=== PATIENT | female | born 1940 | race Asian ===

== ENCOUNTER 2021-12-12 18:43 | Emergency (ER) | payer MEDICAID ==
[~2021-12-12] VITALS: Ht 147.3 cm; Wt 51.4 kg
[2021-12-12] MEDS ORDERED: TRAN650T PO (18:59)
[2021-12-12] MEDS ORDERED: NIFE30TA50 PO (18:59)
[2021-12-12] MEDS ORDERED: LOSA100T45 PO (18:59)
[2021-12-12] MEDS ORDERED: NOXI1TAB PO (18:59)
[2021-12-12] MEDS ORDERED: CIPR-250 PO (18:59)
[2021-12-12] MEDS ORDERED: LEVO88TA3 PO (18:59)
[2021-12-12] MEDS ORDERED: GLYB5TAB6 PO (18:59)
[2021-12-12 19:57] VITALS: BP 197/79
[2021-12-12 19:57] LABS: BASO # 0.1 10^3/uL (0.0-0.2); BASO % 0.7 % (0.0-1.0); EOS # 0.2 10^3/uL (0.0-0.5); EOS % 2.7 % (0.0-3.0); HEMATOCRIT 31.2 % (36.0-47.0); HEMOGLOBIN 11.3 g/dl (12.0-15.5); LYMPH # 1.2 10^3/uL (1.5-5.0); MEAN CORPUSCULAR HEMOGLOBIN 32.9 pg (27.0-33.0); MEAN CORPUSCULAR HGB CONC 36.2 g/dl (32.0-36.5); MONO # 0.6 10^3/uL (0.0-0.8); MONO % 7.7 % (2.0-8.0); NEUTROPHILS # 5.3 10^3/uL (1.5-8.5); NEUTROPHILS % 72.5 % (36.0-66.0); PLATELET COUNT, AUTOMATED 214 10^3/uL (150-450); RED BLOOD COUNT 3.43 10^6/uL (4.00-5.40); WHITE BLOOD COUNT 7.3 10^3/uL (4.0-10.0)
[2021-12-12] MEDS ORDERED: LABETALOL 100MG/20ML VIAL IV STA (19:57)
[2021-12-12 20:32] LABS: RSV AMPLIFICATION NEGATIVE (NEGATIVE)
[2021-12-12 20:33] LABS: CK-MB VALUE MASS < 1.0 NG/ML (<3.6); CPK CREATINE PHOSPHOKINASE 189 U/L (26-192); MB/CK RELATIVE INDEX 0.53 (< OR =4)
[2021-12-12 20:35] VITALS: BP 139/59
[2021-12-12 20:36] LABS: ALBUMIN 3.8 GM/DL (3.2-5.2); ALT/SGPT 76 U/L (12-78); BILIRUBIN,DIRECT < 0.1 MG/DL (0.0-0.2); BILIRUBIN,TOTAL 0.9 MG/DL (0.2-1.0); BLOOD UREA NITROGEN 9 MG/DL (7-18); CALCIUM LEVEL 8.5 MG/DL (8.8-10.2); CARBON DIOXIDE LEVEL 22 MEQ/L (21-32); CHLORIDE LEVEL 94 MEQ/L (98-107); CREATININE FOR GFR 1.11 MG/DL (0.55-1.30); ETHYL ALCOHOL (ETHANOL) < 0.003 % (0.000-0.010); GLOMERULAR FILTRATION RATE 50.1 (>32); GLUCOSE, FASTING 64 MG/DL (70-100); SODIUM LEVEL 121 MEQ/L (136-145); THYROID STIMULATING HORMONE 0.008 uIU/ML (0.358-3.740)
== END 2021-12-12 21:40 | disposition short-term general hospital (02) ==
LOC: EDBD 18:43 → M ED 18:43
DX: I62.9 Nontraumatic intracranial hemorrhage, unspecified (principal); R93.0 Abnormal findings on diagnostic imaging of skull and head, not elsewhere classified; Z87.820 Personal history of traumatic brain injury; E11.9 Type 2 diabetes mellitus without complications; I10 Essential (primary) hypertension